=== PATIENT | female | born 1955 | race Caucasian/White ===

== ENCOUNTER 2016-12-30 23:15 | Outpatient (CLI) | payer MEDICAID | END 2016-12-30 23:16 | disposition critical access hospital (66) | LOC: EMS 23:15 | PROVIDERS: ATTEND Surgery | DX: R11.2 Nausea with vomiting, unspecified (principal) | CPT/HCPCS: A0425; A0429 ==

== ENCOUNTER 2017-01-19 12:00 | Outpatient (CLI) | payer MEDICAID ==
--- NOTE | 2017-01-19 13:46 | CT Preliminary Report ---
Exam: CT Head W/O IMPRESSION: 1. Normal brain CT. No evidence for bleeding, mass effect or shift. 2. Small amount of left mastoid opacity is present. RADIA The call report notification system was initiated by Dr. Deon Steinberg at 12:40 hrs on 01/19/17. The above findings were discussed with OTIS Saleem by Dr. Deon Steinberg at 13:20 hrs on 7. SITE ID: [id number]
--- NOTE | 2017-01-19 14:31 | CT Report ---
EXAM: CT HEAD EXAM DATE: 01/19/2017 12:15 PM. CLINICAL HISTORY: Headache. COMPARISON: None. TECHNIQUE: Multiaxial CT images were obtained from the foramen magnum to the vertex. IV contrast: Non e. Reformats: Coronal. In accordance with CT protocol optimization, one or more of the following dose reduction techniques w ere utilized for this exam: automated exposure control, adjustment of mA and/or KV based on patient s ize, or use of iterative reconstructive technique. FINDINGS: Parenchyma: No intraparenchymal hemorrhage. No evidence of mass, midline shift, or CT findings of inf arction. Ness-white differentiation is distinct. Extraaxial Spaces: Normal for age. No subdural or epidural collections identified. Ventricles: Normal in size and position. Sinuses: Imaged paranasal sinuses, orbits, and mastoids show no significant abnormality. Bones: No evidence of fracture or calvarial defect. Other: Small amount of left mastoid opacity. IMPRESSION: 1. Normal brain CT. No evidence for bleeding, mass effect or shift. 2. Small amount of left mastoid opacity is present. RADIA The call report notification system was initiated by Dr. Deon Steinberg at 12:40 hrs on 01/19/17. The above findings were discussed with OTIS Saleem by Dr. Deon Steinberg at 13:20 hrs on 7. Referring Provider Line: [phone] SITE ID: [id number]
== END 2017-01-19 12:01 | disposition home or self-care (01) ==
LOC: DI 12:00
PROVIDERS: ATTEND Physician Assistant Medical
DX: R51 Headache (principal)
CPT/HCPCS: 70450

== ENCOUNTER 2017-05-23 12:20 | Outpatient (CLI) | payer MEDICAID | END 2017-05-23 12:21 | LOC: LAB.R 12:20 | PROVIDERS: ATTEND Physician Assistant Medical | DX: L08.9 Local infection of the skin and subcutaneous tissue, unspecified (principal) | CPT/HCPCS: 87070; 87205 ==

== ENCOUNTER 2017-07-03 20:18 | Outpatient (CLI) | payer MEDICAID ==
[2017-07-03 19:08] LABS: BASOPHILS % (AUTO) 0.6 %; EOSINOPHILS # (AUTO) 0.2 10^3/uL (0.0-0.7); EOSINOPHILS % (AUTO) 3.1 %; HGB - HEMOGLOBIN 12.8 g/dL (12.0-16.0); LYMPHOCYTES # (AUTO) 1.6 10^3/uL (1.5-3.5); LYMPHOCYTES % (AUTO) 27.3 %; MEAN CORPUSCULAR HEMOGLOBIN 27.8 pg (27.0-31.0); MEAN CORPUSCULAR HGB CONC 32.5 g/dL (32.0-36.0); MEAN CORPUSCULAR VOLUME 85.7 fL (81.0-99.0); MEAN PLATELET VOLUME 7.9 fL (7.9-10.8); MONOCYTES # (AUTO) 0.5 10^3/uL (0.0-1.0); MONOCYTES % (AUTO) 8.1 %; NEUTROPHILS # (AUTO) 3.5 10^3/uL (1.5-6.6); NEUTROPHILS % (AUTO) 60.9 %; PLT - PLATELET COUNT 370 10^3/uL (130-450); RED BLOOD COUNT 4.61 10^6/uL (4.20-5.40); RED CELL DISTRIBUTION WIDTH 15.2 % (12.0-15.0); WHITE BLOOD COUNT 5.7 x10^3/uL (4.8-10.8)
[2017-07-03 19:33] LABS: ALBUMIN 4.2 g/dL (3.2-5.5); ALBUMIN/GLOBULIN RATIO 1.2 (1.0-2.2); ALKALINE PHOSPHATASE 80 IU/L (42-121); ALT ALANINE AMINOTRANSFERASE 26 IU/L (10-60); AST ASPARTATE AMINOTRANSFERASE 30 IU/L (10-42); BILIRUBIN,TOTAL 0.5 mg/dL (0.2-1.0); BUN - BLOOD UREA NITROGEN 12 mg/dL (6-20); CALCIUM 9.2 mg/dL (8.5-10.3); CARBON DIOXIDE - CO2 24 mmol/L (21-32); CHLORIDE 103 mmol/L (101-111); CHOL/HDL RATIO 2.4 (<4.4); CHOLESTEROL 212 mg/dL; CREATININE 0.6 mg/dL (0.4-1.0); GFR - MDRD 101 (>89); GLUCOSE 99 mg/dL (70-100); HDL CHOLESTEROL 90 mg/dL; LDL CHOLESTEROL,CALCULATED 102 mg/dL; LDL/HDL RATIO 1.1 (<4.4); SODIUM 137 mmol/L (135-145); TOTAL PROTEIN 7.7 g/dL (6.7-8.2); VLDL CHOLESTEROL 20 mg/dL
== END 2017-07-03 20:19 | disposition home or self-care (01) ==
LOC: LAB.WCP 20:18
PROVIDERS: ATTEND Physician Assistant Medical
DX: Z00.00 Encounter for general adult medical examination without abnormal findings (principal)
CPT/HCPCS: 36415; 80053; 80061; 83721; 84443; 85025

== ENCOUNTER 2018-08-01 08:00 | Outpatient (CLI) | payer MEDICAID ==
[2018-08-01 19:15] LABS: BASOPHILS % (AUTO) 0.6 %; EOSINOPHILS # (AUTO) 0.2 10^3/uL (0.0-0.7); EOSINOPHILS % (AUTO) 3.2 %; HGB - HEMOGLOBIN 12.9 g/dL (12.0-16.0); LYMPHOCYTES # (AUTO) 1.3 10^3/uL (1.5-3.5); LYMPHOCYTES % (AUTO) 23.3 %; MEAN CORPUSCULAR HEMOGLOBIN 28.4 pg (27.0-31.0); MEAN CORPUSCULAR HGB CONC 32.6 g/dL (32.0-36.0); MEAN CORPUSCULAR VOLUME 87.2 fL (81.0-99.0); MEAN PLATELET VOLUME 7.8 fL (7.9-10.8); MONOCYTES # (AUTO) 0.5 10^3/uL (0.0-1.0); MONOCYTES % (AUTO) 9.1 %; NEUTROPHILS # (AUTO) 3.6 10^3/uL (1.5-6.6); NEUTROPHILS % (AUTO) 63.8 %; PLT - PLATELET COUNT 288 10^3/uL (130-450); RED BLOOD COUNT 4.54 10^6/uL (4.20-5.40); RED CELL DISTRIBUTION WIDTH 17.2 % (12.0-15.0); WHITE BLOOD COUNT 5.6 x10^3/uL (4.8-10.8)
== END 2018-08-01 23:59 | disposition home or self-care (01) ==
LOC: LAB.WCP 08:00
PROVIDERS: ATTEND Physician Assistant Medical
DX: R59.0 Localized enlarged lymph nodes (principal)
CPT/HCPCS: 36415; 85025

== ENCOUNTER 2018-08-17 11:21 | Outpatient (CLI) | payer MEDICAID ==
--- NOTE | 2018-08-17 13:57 | Ultrasound Report ---
Reason: SOFT TISSUE MASS Procedure Date: 08/17/2018 Accession Number: [id number] / [id number] Procedure: US - Ext Limited Non Vascular CPT Code: FULL RESULT: EXAM: LEFT UPPER EXTREMITY ULTRASOUND - LIMITED EXAM DATE: 08/17/2018 12:04 PM. CLINICAL HISTORY: Soft tissue mass. COMPARISON: None. TECHNIQUE: Real-time scanning was performed with static images obtained. FINDINGS: A focal soft tissue physical exam finding on the left forearm, palpable to the patient, is interrogated by ultrasound. A 1.3 x 0.2 cm rubbery-feeling mobile mass is identified, wider than tall respecting tissue planes with the imaging appearance most suggestive of lipoma. No aggressive appearing mass, collection or abnormal vascularity by color Doppler. IMPRESSION: Imaging appearance is suggestive of a lipoma. RADIA
== END 2018-08-17 11:22 | disposition home or self-care (01) ==
LOC: DI 11:21
PROVIDERS: ATTEND Physician Assistant Medical
DX: M79.9 Soft tissue disorder, unspecified (principal); R22.32 Localized swelling, mass and lump, left upper limb
CPT/HCPCS: 76882

== ENCOUNTER 2020-10-08 08:00 | Outpatient (CLI) | payer MEDICARE, OTHER ==
[2020-10-08 17:50] LABS: BASOPHILS # (AUTO) 0.1 10^3/uL (0.0-0.1); BASOPHILS % (AUTO) 0.7 %; EOSINOPHILS # (AUTO) 0.3 10^3/uL (0.0-0.7); EOSINOPHILS % (AUTO) 3.4 %; HCT - HEMATOCRIT 45.7 % (37.0-47.0); HGB - HEMOGLOBIN 14.3 g/dL (12.0-16.0); LYMPHOCYTES # (AUTO) 1.7 10^3/uL (1.5-3.5); LYMPHOCYTES % (AUTO) 20.4 %; MEAN CORPUSCULAR HEMOGLOBIN 29.5 pg (27.0-31.0); MEAN CORPUSCULAR HGB CONC 31.3 g/dL (32.0-36.0); MEAN CORPUSCULAR VOLUME 94.2 fL (81.0-99.0); MEAN PLATELET VOLUME 9.6 fL (7.9-10.8); MONOCYTES # (AUTO) 0.6 10^3/uL (0.0-1.0); MONOCYTES % (AUTO) 7.3 %; NEUTROPHILS # (AUTO) 5.6 10^3/uL (1.5-6.6); NEUTROPHILS % (AUTO) 67.8 %; PLT - PLATELET COUNT 340 10^3/uL (130-450); RED BLOOD COUNT 4.85 10^6/uL (4.20-5.40); RED CELL DISTRIBUTION WIDTH 14.8 % (12.0-15.0); WHITE BLOOD COUNT 8.2 x10^3/uL (4.8-10.8)
[2020-10-08 18:09] LABS: ALBUMIN 4.6 g/dL (3.2-5.5); ALBUMIN/GLOBULIN RATIO 1.3 (1.0-2.2); ALKALINE PHOSPHATASE 86 IU/L (42-121); ALT ALANINE AMINOTRANSFERASE 26 IU/L (10-60); AST ASPARTATE AMINOTRANSFERASE 27 IU/L (10-42); BILIRUBIN,TOTAL 0.7 mg/dL (0.2-1.0); BUN - BLOOD UREA NITROGEN 18 mg/dL (6-20); CALCIUM 9.5 mg/dL (8.5-10.3); CARBON DIOXIDE - CO2 26 mmol/L (21-32); CHLORIDE 101 mmol/L (101-111); CHOL/HDL RATIO 2.6 (<4.4); CHOLESTEROL 214 mg/dL; CREATININE 0.6 mg/dL (0.4-1.0); GFR - MDRD 100 (>89); GLUCOSE 109 mg/dL (70-100); HDL CHOLESTEROL 82 mg/dL; LDL CHOLESTEROL,CALCULATED 110 mg/dL; LDL/HDL RATIO 1.3 (<4.4); POTASSIUM 4.3 mmol/L (3.5-5.0); SODIUM 137 mmol/L (135-145); TOTAL PROTEIN 8.1 g/dL (6.7-8.2); TRIGLYCERIDES 110 mg/dL; VLDL CHOLESTEROL 22 mg/dL
[2020-10-08 18:17] LABS: THYROID STIMULATING HORMONE 1.37 uIU/mL (0.34-5.60)
[2020-10-08 18:28] LABS: FOLATE 6.67 ng/mL (5.90 - >24.8)
== END 2020-10-08 23:59 | disposition home or self-care (01) ==
LOC: LAB.WCP 08:00
PROVIDERS: ATTEND Physician Assistant Medical
DX: Z00.00 Encounter for general adult medical examination without abnormal findings (principal); R73.01 Impaired fasting glucose; R41.3 Other amnesia; J30.9 Allergic rhinitis, unspecified; E03.9 Hypothyroidism, unspecified
CPT/HCPCS: 36415; 80053; 80061; 82306; 82607; 82746; 83721; 84443; 85025

== ENCOUNTER 2020-12-07 14:48 | Outpatient (CLI) | payer MEDICARE, OTHER ==
--- NOTE | 2020-12-08 13:46 | Mammography Report ---
BILATERAL DIGITAL SCREENING MAMMOGRAM 3D/2D: 12/07/2020 CLINICAL: Routine screening. Comparison is made to exams dated: 08/11/2014 mammogram, 10/17/2012 mammogram, and 09/24/2007 mammogram - [facility]. There are scattered fibroglandular elements in both breasts. No significant masses, calcifications, or other findings are seen in either breast. There has been no significant interval change. IMPRESSION: NEGATIVE There is no mammographic evidence of malignancy. A 1 year screening mammogram is recommended. This exam was interpreted at Station ID: [id number]. NOTE: For mammograms, a report in lay terms will be sent to the patient. Approximately 15% of breast malignancies will not be visualized mammographically. In the management of a palpable breast mass, a negative mammogram must not discourage biopsy of a clinically suspicious lesion. Electronically Signed By: Osbaldo Felix M.D. ddp/penrad:12/08/2020 08:11:05 ACR BI-RADS Category 1: Negative 3341F PARENCHYMAL PATTERN: (A) - The breast(s) demonstrate(s) scattered fibroglandular densities. BI-RADS CATEGORY: (1) - 1 RECOMMENDATION: (ANNUAL) - Recommend routine annual screening mammography. [id number] 1 year screening LATERALITY: (B)
== END 2020-12-07 14:49 | disposition home or self-care (01) ==
LOC: DI 14:48
DX: Z12.31 Encounter for screening mammogram for malignant neoplasm of breast (principal)

== ENCOUNTER 2021-04-21 08:00 | Outpatient (CLI) | payer MEDICARE, OTHER | END 2021-04-21 23:59 | disposition home or self-care (01) | LOC: LAB.N 08:00 | PROVIDERS: ATTEND Family Medicine | DX: R50.9 Fever, unspecified (principal); Z20.822 Contact with and (suspected) exposure to COVID-19 ==

== ENCOUNTER 2021-07-30 13:20 | Outpatient (CLI) | payer MEDICARE ==
[2021-07-30 18:14] LABS: CALCIUM 9.4 mg/dL (8.5-10.3); CREATININE 0.5 mg/dL (0.4-1.0); POTASSIUM 4.3 mmol/L (3.5-5.0)
[2021-07-30 20:09] LABS: ESTIMATED AVERAGE GLUCOSE 131 mg/dL (70-100); HEMOGLOBIN A1c% 6.2 % (4.27-6.07)
== END 2021-07-30 13:21 | disposition home or self-care (01) ==
LOC: LAB.N 13:20
PROVIDERS: ATTEND Physician Assistant Medical
DX: R73.01 Impaired fasting glucose (principal)
CPT/HCPCS: 36415; 80048; 83036

== ENCOUNTER 2021-10-09 08:00 | Outpatient (CLI) | payer MEDICARE ==
--- NOTE | 2021-10-09 16:52 | XRAY Report ---
PROCEDURE: Chest 2 View X-Ray INDICATIONS: BRONCHITIS TECHNIQUE: 2 view(s) of the chest. COMPARISON: None. FINDINGS: Surgical changes and devices: None. Lungs and pleura: No pleural effusions or pneumothorax. Lungs are clear. Mediastinum: Mediastinal contours are normal. Heart size is normal. Bones and chest wall: No suspicious bony abnormalities. Soft tissues appear unremarkable. IMPRESSION: No evidence of acute pulmonary process. Reviewed by: Alli Bennett MD on 10/09/2021 4:51 PM PDT Approved by: Alli Bennett MD on 10/09/2021 4:51 PM PDT Station ID: [id number]
== END 2021-10-09 23:29 | disposition home or self-care (01) ==
LOC: DI.N 08:00
PROVIDERS: ATTEND Physician Assistant Medical
DX: J40 Bronchitis, not specified as acute or chronic (principal); R05.9 Cough, unspecified; R50.9 Fever, unspecified; R53.83 Other fatigue; Z20.822 Contact with and (suspected) exposure to COVID-19
CPT/HCPCS: 71046; U0004

== ENCOUNTER 2022-01-28 09:49 | Outpatient (CLI) | payer MEDICARE, OTHER ==
[2022-01-28 12:47] LABS: ALBUMIN 4.3 g/dL (3.2-5.5); ALBUMIN/GLOBULIN RATIO 1.4 (1.0-2.2); BILIRUBIN,TOTAL 0.9 mg/dL (0.2-1.0); CALCIUM 9.6 mg/dL (8.5-10.3); CREATININE 0.6 mg/dL (0.4-1.0); POTASSIUM 4.3 mmol/L (3.5-5.0); TOTAL PROTEIN 7.4 g/dL (6.7-8.2)
[2022-01-28 19:58] LABS: ESTIMATED AVERAGE GLUCOSE 131 mg/dL (70-100); HEMOGLOBIN A1c% 6.2 % (4.27-6.07)
== END 2022-01-28 09:50 | disposition home or self-care (01) ==
LOC: LAB.N 09:49
PROVIDERS: ATTEND Physician Assistant Medical
DX: R73.01 Impaired fasting glucose (principal)
CPT/HCPCS: 36415; 80053; 83036

== ENCOUNTER 2022-02-24 10:05 | Outpatient (CLI) | payer MEDICARE, OTHER ==
--- NOTE | 2022-02-24 13:04 | MRI Report ---
PROCEDURE: Angio Brain W/O (MRA) INDICATIONS: DIZZINESS TECHNIQUE: Noncontrast axial 3-D [id number]-[id number] MR angiogram, with 3-dimensional maximum intensity projection (M IP) reformats of the internal carotid arteries and posterior circulation then performed. COMPARISON: None. FINDINGS: Image quality: Excellent. Anterior circulation: Intracranial internal carotid arteries demonstrate normal size and intralumina l flow signal. The flow within the paired anterior cerebral arteries is normal and symmetric. The f low within the middle cerebral arteries is normal and symmetric. The anterior communicating artery i s seen. No stenoses, occlusions, or aneurysms. Posterior circulation: Visualized portions of the vertebral arteries demonstrate normal caliber, and join to form a normal appearing basilar artery. Hypoplasia/aplasia of the left P1 ORGANIZATIONAL DEVELOPMENT CONSULTANT noted. The P2 segment is supplied by a widely patent posterior communicating artery. Remainder of the distal vascu lature unremarkable. No stenoses, occlusions, or aneurysms. IMPRESSION: 1. Unremarkable MR angiogram of the brain Reviewed by: Brent Smith MD on 02/24/2022 12:02 PM VALERIA Approved by: Brent Smith MD on 02/24/2022 12:02 PM VALERIA Station ID: [id number]
--- NOTE | 2022-02-24 16:44 | Ultrasound Report ---
PROCEDURE: Carotid Doppler Complete INDICATIONS: DIZZINESS TECHNIQUE: Color and pulse Doppler interrogation was performed of both carotid systems, with image documentation and velocity measurements. COMPARISON: None. FINDINGS: Right side: Brachial blood pressure: 127/71 mm Hg. Common carotid artery peak systolic velocity: 83.7 cm/sec. Internal carotid artery peak systolic velocity: 63.4 cm/sec. Internal carotid artery end diastolic velocity: 19.2 cm/sec. External carotid artery peak systolic velocity: 85.1 cm/sec. ICA/CCA peak systolic ratio: 0.8 . Ness scale imaging description: Tortuosity of the common carotid artery. No significant plaque. Percent internal carotid artery stenosis: Less than 50% . Vertebral artery: Flow direction is antegrade. Left side: Brachial blood pressure: 144/79 mm Hg. Common carotid artery peak systolic velocity: 77.3 cm/sec. Internal carotid artery peak systolic velocity: 75.1 cm/sec. Internal carotid artery end diastolic velocity: 22.9 cm/sec. External carotid artery peak systolic velocity: 48.8 cm/sec. ICA/CCA peak systolic ratio: 1.0 . Ness scale imaging description: Common carotid artery is tortuous. No significant atherosclerotic pl aque. Percent internal carotid artery stenosis: Less than 50% . Vertebral artery: Flow direction is antegrade. Increased velocity is seen within the right subclavian artery with peak systolic velocity of 201.6 cm /s and triphasic flow Incidental note is made of a 4.0 cm right thyroid nodule, which patient reports was previously biopsi ed at [facility] IMPRESSION: 1.Less than 50% stenosis of the bilateral internal carotid arteries. 2.Increased peak systolic velocity within the proximal right subclavian artery is incidentally noted that may indicate underlying subclavian stenosis. Antegrade flow is seen in the right vertebral arter y. 3.Right thyroid nodule measures up to 4 cm. Patient states prior thyroid biopsy at outside hospital. Recommend correlation with patient history. The estimate of stenosis included in the report of the imaging study was calculated using the NASCET method Reviewed by: Boston Brown MD on 02/24/2022 4:42 PM PDT Approved by: Boston Brown MD on 02/24/2022 4:42 PM PDT Station ID: [id number]
== END 2022-02-24 10:06 | disposition home or self-care (01) ==
LOC: DI 10:05
PROVIDERS: ATTEND Physician Assistant Medical
DX: I65.23 Occlusion and stenosis of bilateral carotid arteries (principal)
CPT/HCPCS: 93880

== ENCOUNTER 2022-03-04 14:05 | Outpatient (CLI) | payer MEDICARE, OTHER ==
[2022-03-04 14:52] VITALS: BP 128/76
--- NOTE | 2022-03-04 14:52 | SLEEP CARE CONSULTATION ---
Information from patient questionnaire entered by Bertha Green. I have reviewed and concur with the information entered by Bertha Green. This document represents the service I personally performed and the decisions made by me, Pepper Enrique ARNP. History of Present Illness Service Date and Time: 03/04/2022 1405 Reason for Visit: New patient Chief Complaint: reports: Insomnia, Unrefreshed sleep, Snoring, Excessive daytime sleepiness, Observed pauses in breathing, Fatigue, Frequent awakenings at night Date of Onset: 25+ years Usual bedtime: 0030 Time it takes to fall asleep: 5 minutes Snores at night: Yes Observed to quit breathing while asleep: Yes Sleeps alone due to snoring: No (n/a) Number of times waking at night: 3-5 Reasons for waking at night: reports: Choking, Snoring, Gasping for air, Pain, Bathroom, Other (unknown reason) Toss, Turn, or Twitch while sleeping: Yes Recalls having dreams: Yes (only rarely) Usually gets out of bed at: 9 AM Feels refreshed in the morning: No Morning headache: Yes (4-5 times a week; resolves within an hour) Sleepy or fatigued during the day: Yes Ever fallen asleep while driving: No Takes day naps: Yes (not intentionally take a nap; while watching TV for 15-20 mins) Dreams during day naps: No Prior sleep studies: Yes Year and Where: 1999 - [place], [place] Additional HPI information: I had the pleasure of seeing TUCKER WILSON today regarding the possibility of her having a sleep disorder. Her current complaints are excessive daytime sleepiness, fatigue, frequent night awakenings, insomnia, observed pauses in breathing, snoring and unrefreshed sleep. She has had a sleep study 25 years ago but was only told her she snored loud. She has had some friends tell her she stops breathing at night as well. She has woken up gasping for air. She can go to sleep quickly but she wakes up a lot at night. She has a ORUA ring that tracks health stats. This has registered her as awake for spaces of time, even u p to 10 minutes. - Parasomnia Symptoms Ever been unable to move upon waking from sleep: No Walks in sleep: No Talks in sleep: No Ever acted out dreams in sleep: No Ever felt weak in the knees when startled or emotional: Yes Bothered by creepy, crawly, restless sensations in legs: No Problems with memory or concentration: Yes (both; memory seems to be worse) Subjective Initial [place] Sleepiness Scale score: 13 (02/2022) Past Medical History Past Medical History: reports: Arthritis, Fibromyalgia, Depression, GERD, Other (surgeries; Gastric band 2002, removed; gastric bypass x 2; [facility]; left knee replaced; multiple sx for detached muscle or torn ligaments) Social History The patient's occupation is a RE. Patient is Single and lives in [place]. Have you smoked in the past 12 months: Yes (5 cigs couple weeks ago) Cigarettes per day (20/pack): 5 (5-10 every few months) Years of smokin (on/off since 20s) Quit date: 1997 Smoking Pack Years: 4.0 Alcohol use: Yes Alcohol amount and frequency: rarely, once or twice a month or so Caffeine use: Yes Caffeine amount and frequency: 1 coffee, 3 tea daily Family History Family history of sleep disordered breathing: Yes Family Hx Sleep Apnea: Mother: Snoring, Father: Snoring, Sibling: Snoring Allergies and Home Medications Drug allergies reviewed: Yes (sensitive to codeine) Home medication list reviewed: Yes Allergy and home medication list: Medications: Duloxetine Diclofenac Cannabis, prn Review of Systems Weight gain over past 5 years: 100 - over last 2.5 yrs Respiratory: reports: shortness of breath, wheeze, sputum production Gastrointestinal: reports: nausea, vomitting, diarrhea Neurological: reports: headaches, head trauma, gait or balance problems Psychiatric: reports: anxiety, depression Ear/Nose/Throat: reports: nasal congestion, wisdom teeth removed. denies: tonsillectomy Endocrine: reports: sluggishness, too hot or cold, unexplained weakness Musculoskeletal: reports: joint pain, neck pain, back pain, joint swelling, muscle pain or cramping, mobility problems Immunologic: reports: sneezing, itching, allergies to food or environment (seasonal) Physical Exam Vital signs obtained and entered by: BERTHA Padilla MA Blood Pressure: 128/76 (LEFT ARM) Cuff size: long Heart Rate: 106 O2 Saturation: 95 Height: 5 ft 5 in Weight: 283 lb Body Mass Index: 47.0 BMI Classification: Morbidly Obese Neck circumference: 15.5 (inches) Mouth and throat: narrow oropharynx Soft palate: long Hard palate: normal Uvula: long Uvula visualization: 25% Mallampati Class III Tongue: enlarged in size with teeth villegas on lateral edges Tonsils: 1+ Neck: normal w/o lymphadenopathy or thyromegaly Heart: regular rate and rhythm Lungs: clear bilaterally Impression and Plan 1. Suspected Obstructive Sleep Apnea-Hypopnea Syndrome, as suggested by a history of loud and irregular snoring, observed cessation of breath while asleep, gasping or choking in sleep, morning headache, frequent awakening during the night, unrefreshed sleep, cognitive impairment, and excessive daytime sleepiness. Narrow oropharynx and obesity are common predisposing factors for obstructive sleep apnea-hypopnea syndrome. I recommend proceeding to polysomnography to confirm the diagnosis and to assess severity. If the patient has significant sleep disordered breathing, a manual CPAP titration study will also be performed to find the optimal treatment pressure. I informed the patient of what the sleep studies involve and after some discussion, obtained agreement to proceed. The pathophysiology of obstructive sleep apnea-hypopnea syndrome was discussed with the patient and health risks of cardiovascular and cerebrovascular disease if not treated. Risks of drowsy driving discussed in detail and patient advised to avoid long distance driving and to insole tack puller hand at the first sign of drowsiness. Patient agreed to plan. * Schedule polysomnography * Avoid long distance driving or driving when feeling sleepy. * Avoid alcohol, sedative and muscle relaxant around bedtime. * Attempt to lose weight. * Review instructions provided by trained office staff on how to prepare for the sleep study. * Return for follow-up after sleep study completed. Counseling Topics: Weight loss health impact Visit Type: In Office Time Spent with Patient (minutes): 35 Provider Statement: I spent 100% of the Face to Face Visit with the patient with greater than 50% spent counseling the patient and coordination of care.
== END 2022-03-04 14:06 | disposition home or self-care (01) ==
LOC: SC 14:05
PROVIDERS: ATTEND Nurse Practitioner Family
DX: G47.10 Hypersomnia, unspecified (principal); R53.83 Other fatigue; G47.8 Other sleep disorders; R51.9 Headache, unspecified; R06.83 Snoring; R06.81 Apnea, not elsewhere classified; F32.A Depression, unspecified; E66.01 Morbid (severe) obesity due to excess calories; Z68.42 Body mass index [BMI] 45.0-49.9, adult; F17.210 Nicotine dependence, cigarettes, uncomplicated
CPT/HCPCS: 99203; G0463; 99212

== ENCOUNTER 2022-03-10 12:58 | Outpatient (CLI) | payer MEDICARE, OTHER ==
--- NOTE | 2022-03-10 16:29 | Ultrasound Report ---
PROCEDURE: Duplex Upr Ext Arterial RT INDICATIONS: SUBCLAVIAN STENOSIS TECHNIQUE: Color and pulse Doppler interrogation was performed of right upper extremity arterial systems, with i mage documentation. COMPARISON: Carotid ultrasound 02/24/2022 FINDINGS: Subclavian artery (proximal): 242 cm/sec Subclavian artery (mid): 87 cm/sec Subclavian artery (distal): 94 cm/sec Axillary artery: 105 cm/sec Brachial artery (proximal): 83 cm/sec, Radial artery (proximal): 71 cm/sec Radial artery (mid): 66 cm/sec Radial artery (distal): 68 cm/sec. Ulnar artery (proximal): 63 cm/sec, Ulnar artery (mid): 48 cm/sec Ulnar artery (distal): 52 cm/sec Ness-scale imaging description: Tortuous vessels are present. No significant plaque. Triphasic flow is identified. IMPRESSION: Focal narrowing with increased velocity in the proximal subclavian artery. There is no visualized tamia que and vessel is tortuous. Recommend CTA for further evaluation of true stenosis versus artifact. Reviewed by: Bisi Jiang MD on 03/10/2022 4:27 PM PDT Approved by: Bisi Jiang MD on 03/10/2022 4:27 PM PDT Station ID: [id number]
== END 2022-03-10 12:59 | disposition home or self-care (01) ==
LOC: DI 12:58
PROVIDERS: ATTEND Physician Assistant Medical
DX: I77.1 Stricture of artery (principal)

== ENCOUNTER 2022-04-28 10:54 | Outpatient (CLI) | payer MEDICARE, OTHER ==
[2022-04-28 11:18] LABS: CREATININE 0.7 mg/dL (0.4-1.0)
[2022-04-28] MEDS ORDERED: iohexoL-300 100 ML VIAL ONE (11:21)
== END 2022-04-28 10:55 | disposition home or self-care (01) ==
LOC: LAB 10:54
PROVIDERS: ATTEND Physician Assistant Medical
DX: I77.1 Stricture of artery (principal)
CPT/HCPCS: 36415; 82565

== ENCOUNTER 2023-01-03 13:18 | Outpatient (CLI) | payer MEDICARE ==
--- NOTE | 2023-01-04 09:51 | Mammography Report ---
BILATERAL DIGITAL SCREENING MAMMOGRAM 3D/2D: 01/03/2023 CLINICAL: Routine screening. Comparison is made to exams dated: 12/07/2020 mammogram, 08/11/2014 mammogram, 10/17/2012 mammogram, an d 09/24/2007 mammogram - [facility]. Both breasts are almost entirely fatty (category a/<25% glandular tissue). No significant masses, calcifications, or other findings are seen in either breast. There has been no significant interval change. IMPRESSION: NEGATIVE There is no mammographic evidence of malignancy. A 1 year screening mammogram is recommended. Based on the Tyrer Cuzick model (a risk assessment model) the patients lifetime risk is 4.8% and her 10 year risk is 2.8%. According to the ACR, ACS, and NCCN guidelines, an annual breast MRI exam everette g with mammogram is recommended if the patients lifetime risk is 20% or greater. This exam was interpreted at Station ID: [id number]. NOTE: For mammograms, a report in lay terms will be sent to the patient. Approximately 15% of breast malignancies will not be visualized mammographically. In the management of a palpable breast mass, a negative mammogram must not discourage biopsy of a clinically suspicious lesion. Electronically Signed By: Cathleen [email or web address]/anisha:01/03/2023 17:29:38 letter sent: No_Letter ACR BI-RADS Category 1: Negative 3341F PARENCHYMAL PATTERN: (F) - The breast(s) demonstrate(s) diffuse fatty replacement. BI-RADS CATEGORY: (1) - 1 Mammogram [id number] 1 year screening LATERALITY: (B)
== END 2023-01-03 13:19 | disposition home or self-care (01) ==
LOC: DI.N 13:18
DX: Z12.31 Encounter for screening mammogram for malignant neoplasm of breast (principal)

== ENCOUNTER 2023-02-25 12:33 | Outpatient (CLI) | payer MEDICARE, OTHER ==
[2023-02-25 18:49] LABS: BASOPHILS # (AUTO) 0.1 10^3/uL (0.0-0.1); BASOPHILS % (AUTO) 0.6 %; EOSINOPHILS # (AUTO) 0.2 10^3/uL (0.0-0.7); EOSINOPHILS % (AUTO) 2.3 %; HCT - HEMATOCRIT 38.8 % (37.0-47.0); HGB - HEMOGLOBIN 11.9 g/dL (12.0-16.0); LYMPHOCYTES # (AUTO) 1.9 10^3/uL (1.5-3.5); LYMPHOCYTES % (AUTO) 22.5 %; MEAN CORPUSCULAR HEMOGLOBIN 25.8 pg (27.0-31.0); MEAN CORPUSCULAR HGB CONC 30.7 g/dL (32.0-36.0); MEAN CORPUSCULAR VOLUME 84.2 fL (81.0-99.0); MEAN PLATELET VOLUME 9.4 fL (7.9-10.8); MONOCYTES # (AUTO) 0.6 10^3/uL (0.0-1.0); MONOCYTES % (AUTO) 7.5 %; NEUTROPHILS # (AUTO) 5.7 10^3/uL (1.5-6.6); PLT - PLATELET COUNT 438 10^3/uL (130-450); RED BLOOD COUNT 4.61 10^6/uL (4.20-5.40); RED CELL DISTRIBUTION WIDTH 16.6 % (12.0-15.0); WHITE BLOOD COUNT 8.6 x10^3/uL (4.8-10.8)
[2023-02-25 19:03] LABS: ALBUMIN 4.4 g/dL (3.2-5.5); ALBUMIN/GLOBULIN RATIO 1.5 (1.0-2.2); ALKALINE PHOSPHATASE 75 IU/L (42-121); ALT ALANINE AMINOTRANSFERASE 13 IU/L (10-60); AST ASPARTATE AMINOTRANSFERASE 14 IU/L (10-42); BILIRUBIN,TOTAL 0.6 mg/dL (0.2-1.0); BUN - BLOOD UREA NITROGEN 14 mg/dL (6-20); CALCIUM 9.6 mg/dL (8.5-10.3); CARBON DIOXIDE - CO2 25 mmol/L (21-32); CHLORIDE 102 mmol/L (101-111); CHOL/HDL RATIO 2.6 (<4.4); CHOLESTEROL 228 mg/dL; CREATININE 0.5 mg/dL (0.6-1.3); GFR - MDRD 122 (>89); GLUCOSE 115 mg/dL (74-104); HDL CHOLESTEROL 87 mg/dL; LDL CHOLESTEROL,CALCULATED 114 mg/dL; LDL/HDL RATIO 1.3 (<4.4); POTASSIUM 4.1 mmol/L (3.5-4.5); SODIUM 134 mmol/L (135-145); TOTAL PROTEIN 7.3 g/dL (6.4-8.9); TRIGLYCERIDES 134 mg/dL (48-352); VLDL CHOLESTEROL 27 mg/dL
[2023-02-25 19:13] LABS: THYROID STIMULATING HORMONE 1.43 uIU/mL (0.34-5.60)
[2023-02-25 19:20] LABS: FERRITIN 4.1 ng/mL (11.0-306.8)
== END 2023-02-25 12:34 | disposition home or self-care (01) ==
LOC: LAB.N 12:33
PROVIDERS: ATTEND Physician Assistant Medical
DX: R73.01 Impaired fasting glucose (principal); R53.83 Other fatigue; E03.9 Hypothyroidism, unspecified
CPT/HCPCS: 36415; 80053; 80061; 82607; 82728; 83721; 84443; 85025

== ENCOUNTER 2023-04-17 14:30 | Outpatient (CLI) | payer MEDICARE, OTHER ==
[2023-04-17 18:05] LABS: BASOPHILS # (AUTO) 0.1 10^3/uL (0.0-0.1); BASOPHILS % (AUTO) 0.6 %; EOSINOPHILS # (AUTO) 0.1 10^3/uL (0.0-0.7); EOSINOPHILS % (AUTO) 0.8 %; HCT - HEMATOCRIT 38.9 % (37.0-47.0); HGB - HEMOGLOBIN 12.1 g/dL (12.0-16.0); LYMPHOCYTES # (AUTO) 1.4 10^3/uL (1.5-3.5); MEAN CORPUSCULAR HEMOGLOBIN 25.5 pg (27.0-31.0); MEAN CORPUSCULAR HGB CONC 31.1 g/dL (32.0-36.0); MEAN CORPUSCULAR VOLUME 82.1 fL (81.0-99.0); MEAN PLATELET VOLUME 9.2 fL (7.9-10.8); MONOCYTES # (AUTO) 1.2 10^3/uL (0.0-1.0); MONOCYTES % (AUTO) 14.1 %; NEUTROPHILS # (AUTO) 5.8 10^3/uL (1.5-6.6); NEUTROPHILS % (AUTO) 68.3 %; PLT - PLATELET COUNT 450 10^3/uL (130-450); RED BLOOD COUNT 4.74 10^6/uL (4.20-5.40); RED CELL DISTRIBUTION WIDTH 16.8 % (12.0-15.0); WHITE BLOOD COUNT 8.5 x10^3/uL (4.8-10.8)
[2023-04-17 18:30] LABS: ALBUMIN 4.4 g/dL (3.2-5.5); ALBUMIN/GLOBULIN RATIO 1.4 (1.0-2.2); BILIRUBIN,TOTAL 0.6 mg/dL (0.2-1.0); CALCIUM 9.7 mg/dL (8.5-10.3); CREATININE 0.5 mg/dL (0.6-1.3); POTASSIUM 3.1 mmol/L (3.5-4.5); TOTAL PROTEIN 7.5 g/dL (6.4-8.9)
[2023-04-18 19:05] LABS: H. PYLORIS ANTIGEN STL NEGATIVE (Negative)
== END 2023-04-17 14:45 | disposition home or self-care (01) ==
LOC: LAB.N 14:30
PROVIDERS: ATTEND Physician Assistant Medical
DX: R19.7 Diarrhea, unspecified (principal)
CPT/HCPCS: 36415; 80053; 82150; 83690; 85025; 87045; 87046; 87177; 87209; 87338; 87427

== ENCOUNTER 2023-05-26 14:29 | Outpatient (CLI) | payer MEDICARE, OTHER | END 2023-05-26 14:30 | disposition home or self-care (01) | LOC: LAB.N 14:29 | PROVIDERS: ATTEND Physician Assistant Medical | DX: E53.8 Deficiency of other specified B group vitamins (principal) | CPT/HCPCS: 36415; 82607 ==

== ENCOUNTER 2023-08-25 10:50 | Outpatient (CLI) | payer MEDICARE, OTHER ==
[2023-08-25 17:48] LABS: ALBUMIN 4.3 g/dL (3.2-5.5); ALBUMIN/GLOBULIN RATIO 1.5 (1.0-2.2); BILIRUBIN,TOTAL 0.3 mg/dL (0.2-1.0); CALCIUM 9.3 mg/dL (8.5-10.3); CREATININE 0.5 mg/dL (0.6-1.3); POTASSIUM 4.2 mmol/L (3.5-4.5); TOTAL PROTEIN 7.1 g/dL (6.4-8.9)
[2023-08-25 21:27] LABS: ESTIMATED AVERAGE GLUCOSE 134 mg/dL (70-100); HEMOGLOBIN A1c% 6.3 % (4.27-6.07)
== END 2023-08-25 10:51 | disposition home or self-care (01) ==
LOC: LAB.N 10:50
PROVIDERS: ATTEND Physician Assistant Medical
DX: R73.01 Impaired fasting glucose (principal)
CPT/HCPCS: 36415; 80053; 83036